=== PATIENT | male | born 1965 | race Two or more races ===

== ENCOUNTER → 2016-12-31 | Outpatient (CLI) | payer OTHER ==
--- NOTE | 2016-12-31 18:26 | REP ---
REASON: Pain after trauma. FINDINGS: Three views of the shoulder were performed. The acromioclavicular and glenohumeral relationships are within normal limits. There is no acute fracture or destructive osseous lesion. There are chronic changes seen involving the acromioclavicular joint. Signed by Rogers Daniels DO 12/31/2016 07:44 P
--- NOTE | 2016-12-31 18:31 | REP ---
REASON: Neck pain status-post trauma. COMPARISON: 06/04/2007. Although this plain radiographic evaluation of the cervical spine shows no evidence of a fracture, it should be remembered that CT is much more sensitive than plain radiography of the C-spine in detecting fractures. If this examination was ordered to rule out a fracture then CT of the cervical spine is recommended. FINDINGS: Seven views of the cervical spine show no acute fracture, dislocation or subluxation. The intervertebral disc spaces are symmetric and well maintained. The facet joints are well aligned bilaterally. The intervertebral foramina are patent bilaterally and the neural canal is not encroached upon. There is no destructive osseous lesion. Flexion and extension does not appear to be particularly limited radiographically. The anterior spinal soft tissues appear unremarkable. There has been no significant change from the prior exam. Since the patient has been involved in trauma. CT is recommended. IMPRESSION: Unremarkable cervical spine series. Signed by Rogers Daniels DO 12/31/2016 07:44 P
--- NOTE | 2016-12-31 18:40 | REP ---
REASON: Pain after trauma. FINDINGS: No acute fracture or destructive osseous lesion. Signed by Rogers Daniels DO 12/31/2016 07:44 P
== END ==
LOC: M LRY 17:07
PROVIDERS: ATTEND Nurse Practitioner Family
DX: M25.512 Pain in left shoulder (principal); M54.2 Cervicalgia; M25.531 Pain in right wrist; V89.2XXA Person injured in unspecified motor-vehicle accident, traffic, initial encounter; Y99.8 Other external cause status